=== PATIENT | male | born 1995 | race Caucasian/White ===

== ENCOUNTER → 2021-10-08 | Emergency (ER) | payer BC ==
[2021-10-08 21:31] VITALS: BP 156/98; PULSE 74; TEMP 98.3; BMI 34.2
== END ==
LOC: JER 21:24
DX: R42 Dizziness and giddiness (principal); R53.1 Weakness; R00.2 Palpitations
CPT/HCPCS: 93005; 93010; 99283-25

== ENCOUNTER 2021-10-22 17:09 | Emergency (ER) | payer SELFPAY ==
[2021-10-22 18:01] VITALS: TEMP 98.2; BMI 33.6
[2021-10-22] MEDS ORDERED: SODIUM CHLORIDE 1,000 ML IV STA (18:35)
[2021-10-22] MEDS ORDERED: METOCLOPRAMIDE HCL INJECTION 10 MG/2 ML VIAL IVPB ONE (18:35)
[2021-10-22] MEDS ORDERED: METOCLOPRAMIDE HCL INJECTION 10 MG/2 ML VIAL ONE (18:50)
[2021-10-22 19:07] LABS: HEMATOCRIT 46.5 % (35.4-49); HEMOGLOBIN 15.8 GM/dL (11.7-16.9); LYMPH % 25.9 % (8-40); MCH 29.9 pg (25.7-33.7); MEAN CELL VOLUME 87.9 fl (80-96); MEAN PLT VOLUME 8.2 fl (7.5-11.1); MONO % 7.2 % (3.8-10.2); NEUT % 56.9 % (42.8-82.8); PLATELET COUNT 263 10^3/uL (134-434); RBC 5.29 M/mm3 (4.00-5.60); RDW 13.6 % (11.9-15.9); WHITE BLOOD COUNT 9.7 K/mm3 (4.0-10.0)
[2021-10-22 19:28] LABS: ALBUMIN 4.2 g/dl (3.4-5.0); BLOOD UREA NITROGEN 12.6 mg/dL (7-18); CALCIUM 9.5 mg/dL (8.5-10.1)
[2021-10-22 19:33] LABS: BILIRUBIN,TOTAL 0.4 mg/dL (0.2-1); TOT PROT 7.9 g/dl (6.4-8.2)
[2021-10-22 20:04] LABS: URINE APPEARANCE CLEAR; URINE BILIRUBIN NEGATIVE (NEGATIVE); URINE COLOR YELLOW; URINE GLUCOSE (UA) NEGATIVE (NEGATIVE); URINE KETONE NEGATIVE (NEGATIVE); URINE LEUK ESTERASE NEGATIVE (NEGATIVE); URINE NITRITE NEGATIVE (NEGATIVE); URINE PROTEIN NEGATIVE (NEGATIVE); URINE UROBILINOGEN 0.2 mg/dL (0.2-1.0)
[2021-10-22 22:50] VITALS: BP 130/78; PULSE 84
== END 2021-10-22 22:48 | disposition home or self-care (01) ==
LOC: JERFT 17:09
PROC: 3E033GC Introduction of Other Therapeutic Substance into Peripheral Vein, Percutaneous Approach (ICD-10-PCS; principal; 2021-10-22)
PROC: 3E0337Z Introduction of Electrolytic and Water Balance Substance into Peripheral Vein, Percutaneous Approach (ICD-10-PCS; 2021-10-22)
DX: R42 Dizziness and giddiness (principal); R51.9 Headache, unspecified
CPT/HCPCS: 36415; 70450-TC; 80053; 81003; 85025; 93005; 93010; 99285-25

== ENCOUNTER 2021-10-23 23:47 | Emergency (ER) | payer SELFPAY ==
[2021-10-24 00:06] VITALS: BP 152/92; PULSE 76; TEMP 97.3; BMI 33.6
[2021-10-24] MEDS ORDERED: MAG HYDROX/AL HYDROX/SIMETH 30 ML UNIT-DOSE CUP PO ONE (01:01)
[2021-10-24] MEDS ORDERED: FAMOTIDINE 20 MG TABLET PO ONE (01:01)
[2021-10-24] MEDS ORDERED: FAMOTIDINE 20 MG TABLET ONE (01:26)
[2021-10-24] MEDS ORDERED: MAG HYDROX/AL HYDROX/SIMETH 30 ML UNIT-DOSE CUP ONE (01:26)
== END 2021-10-24 01:38 | disposition home or self-care (01) ==
LOC: JER 23:47
DX: K21.9 Gastro-esophageal reflux disease without esophagitis (principal)
CPT/HCPCS: 99283-25

== ENCOUNTER 2021-10-30 22:51 | Emergency (ER) | payer SELFPAY ==
[2021-10-30 23:02] VITALS: BP 140/87; PULSE 68; TEMP 98.7; BMI 33.0
== END 2021-10-31 01:00 | disposition left against medical advice (07) ==
LOC: JER 22:51
DX: K21.9 Gastro-esophageal reflux disease without esophagitis (principal)
CPT/HCPCS: 99281-25